=== PATIENT | male | born 1975 | race Asian ===

== ENCOUNTER 2019-10-25 21:41 | Emergency (ER) | payer OTHER ==
[~2019-10-25] VITALS: Ht 165.1 cm; Wt 63.5 kg
[2019-10-25 21:45] VITALS: BP_SYST 137
[2019-10-25] MEDS ORDERED: HYDROcodone/ACETAMIN 10-325 MG TAB PO ONE (23:15)
[2019-10-26 00:40] VITALS: BP_SYST 130
== END 2019-10-26 00:40 | disposition home or self-care (01) ==
LOC: SED 21:41
DX: S52.501A Unspecified fracture of the lower end of right radius, initial encounter for closed fracture (principal); W18.39XA Other fall on same level, initial encounter; Y93.89 Activity, other specified; Y92.89 Other specified places as the place of occurrence of the external cause; Y99.8 Other external cause status
CPT/HCPCS: 99283